=== PATIENT | male | born 1935 | race Caucasian/White ===

== ENCOUNTER 2016-10-06 08:04 | Outpatient (CLI) | payer MEDICARE, BC ==
[~2016-10-06] VITALS: Ht 177.8 cm; Wt 108.0 kg
--- NOTE | ~2016-10-06 | CATH ---
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 Informed consent was obtained in the written and verbal form after the risks and benefits were explained. The patient had no further questions and agreed to proceed. The planned puncture-incision site(s) were shaved and prepped with ChloraPrep and draped in the usual sterile manner. Conscious sedation, supplemental oxygen, and pain control medications were delivered by a registered nurse under physician guidance. Surface ECG rhythm, blood pressure measurement, and pulse oximetry were monitored throughout the procedure. Arterial access. The access site was infiltrated with lidocaine. The vessel was entered with the Seldinger technique. A sheath was advanced into the vessel and used for catheter placement. Selective left coronary angiography. A catheter was advanced into the left coronary vessel ostium under Fluoroscopic guidance. Contrast was injected by hand. Images were obtained in multiple projections. Selective right coronary angiography. A catheter was advanced into the right coronary vessel ostium under fluoroscopic guidance. Contrast was injected by hand. Images were obtained in multiple projections. Left heart catheterization with ventriculography. A catheter was advanced across the aortic valve to the left ventricle under fluoroscopic guidance. Resting hemodynamics were obtained. With the catheter at the left ventricular apex, contrast was injected. Images were obtained in TAYLOR projections. Post-ventriculography LV pressure was obtained. The catheter was gradually withdrawn into the aorta with continuous pressure recording. Arterial artery hemostasis was achieved. The patient was transferred to a regular nursing floor via cart accompanied by a nurse. The patient left the laboratory in stable condition. Procedure Procedure Type Diagnostic procedure:Ventriculogram:, Left, Angiography:, Coronary Angios w/[facility] Indications: Chest pain and Shortness of breath. The procedure was explained in detail to the patient. Risks, complications and alternative treatments were reviewed. Written consent was obtained. Medications Reviewed with Patient prior to Procedure. Angiographic Findings Dominance: Mixed Cardiac Arteries and Lesion Findings LMCA: Normal (0% Stenosis). LAD: Normal (0% Stenosis).Stent patent Large ,prior stent mid normal, small distal normal LCx: Normal (0% Stenosis).large codominant normal RCA: Normal (0% Stenosis).large codominant, prior distal stents widely patent Pl large normal PDA medium normalThere is a previous stent on Mid RCA Mid subsection. Coronary Tree Procedure Data Procedure Date Date: 10/06/2016Start: 09:21 AMEnd: 09:58 AM Entry Locations - Retrograde Percutaneous access was performed through the Right Femoral artery (Primary location). A 6 Fr sheath was inserted. Hemostasis was successfully obtained using Angio-Seal STS PLUS ([place]). Closure Comments: by Tomás Hidalgo. Procedure Medications Order and Administration + + + +-------+ !Time !Medication !Dosage !Route ! + + + +-------+ !10/06/2016 09:19 AM !Versed !0.5 mg !I.V. ! + + + +-------+ !10/06/2016 09:22 AM !Fentanyl !25 mcg !I.V. ! + + + +-------+ !10/06/2016 09:24 AM !Oxygen !2 l/min !NC ! + + + +-------+ Devices Used - A6 Fr. BS JL 4 Diag. Catheter. - A6 Fr. BS JR 4 Diag. Catheterwas used for:Right coronary angiography. - A6 Fr. BS Angled Pigtail Diag. Catheterwas used for:LV Pressures. Contrast Material - Isovue 137337 ml Fluoroscopy Time: Diagnostic: 2:36 minutes. Total: 2:36 minutes. Fluoroscopy Dose: Diagnostic: 864 mGy. Total: 864 mGy. Estimated Blood Loss: 5 ml. Medical History Allergies - No known allergies. Risk Factors The patient risk factors include:prior PCI on 02/19/2015;hypercholesterolemia, hypertension, diabetes mellitus, dyslipidemia and former tobacco use. Admission Data Admission Date: 10/06/2016 Admission Time: 08:04 AM Admit Source: Other Insurance Payors: Medicare. Admission Medications + +------+------+ +---------+ + + !Medication !Dosage!Times !Last !Last !Administered !Comments ! ! ! !Per !Delivery !Delivery ! ! ! ! ! !Day !Date !Time ! ! ! + +------+------+ +---------+ + + !Beta [place]in! ! ! ! !Yes ! ! !(any) ! ! ! ! ! ! ! + +------+------+ +---------+ + + !Aspirin ! ! ! ! !Yes ! ! !(any) ! ! ! ! ! ! ! + +------+------+ +---------+ + + !Clopidogrel ! ! ! ! !Yes ! ! + +------+------+ +---------+ + + !ARB (any) ! ! ! ! !Yes ! ! + +------+------+ +---------+ + + !Statin (any)! ! !10/06/2016 !12:00 AM !Yes ! ! + +------+------+ +---------+ + + Clinical Evaluation Leading to Procedure Diagnosed on 10/06/2016 08:00 AM. - The patient's CAD presentation was assessed as: Unstable angina. 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 Anti-anginal medications were prescribed during the past two weeks. The medications are: Beta Blockers and Ca channel Blockers. Hemodynamics Condition: Rest O2 Consumption: Estimated: 263.76Heart Rate: 78 bpm Pressures (mmHg) +-----+ + !Site !Pressure ! +-----+ + !AO !140/53 (89) ! +-----+ + !AO !127/62 (88) ! +-----+ + !LV !139/-6 ,14 ! +-----+ + !LV !146/-6 ,14 ! +-----+ + !LV !143/5 ,12 ! +-----+ + !LV !144/48 ,32 ! +-----+ + !LV !139/-5 ,12 ! +-----+ + !LV !138/-4 ,12 ! +-----+ + !AO !135/56 (88) ! +-----+ + !LV !138/-5 ,12 ! +-----+ + Valve Gradients and Areas + +---------+---------+---------+ +---------+ + !Valve !Peak !Mean !Area !Index !Flow !Source ! + +---------+---------+---------+ +---------+ + !Aortic !1 !0 ! ! ! ! ! + +---------+---------+---------+ +---------+ + !Aortic !1 !0 ! ! ! ! ! + +---------+---------+---------+ +---------+ + Shunts Oxygen Values O2 Capacity 194.48 O2 Consumption 263.76 Discharge Data Discharge Date: 10/06/2016 Hospital Status: Outpatient Signatures dtt: Gary Spaulding (cardio) dtd: 10/06/16920 Physician Self Edit
[~2016-10-06 08:04] MED LIST: AMARYL1 MG PO; ASPIRIN EC325 MG PO; BRILINTA90 MG PO; CALCIUM 600 +1 EA10 PO; DIOVAN160 MG PO; K-TAB ER20 MEQ PO; LOPRESSOR25 MG PO; NORVASC5 MG PO; OCUVITE SOFTGE1 EACH PO; PLAVIX75 MG PO; SIMVASTATIN40 MG PO; TRADJENTA5 MG PO; ZOCOR40 MG PO
== END 2016-10-06 13:18 | disposition disaster alternative care site (69) ==
LOC: GPOC 08:04 → GPCU 08:04 → GPOC 13:18
PROC: 4A023N7 Measurement of Cardiac Sampling and Pressure, Left Heart, Percutaneous Approach (ICD-10-PCS; principal; 2016-10-06)
PROC: B216YZZ Fluoroscopy of Right and Left Heart using Other Contrast (ICD-10-PCS; 2016-10-06)
DX: R07.9 Chest pain, unspecified (principal)
CPT/HCPCS: C1760; J1644; J2001; J2250; J3010; J7030